=== PATIENT | female | born 1995 | race Caucasian/White ===

== ENCOUNTER 2017-01-15 16:18 | Emergency (ER) | payer OTHER ==
[~2017-01-15] VITALS: Ht 170.2 cm; Wt 55.3 kg
[2017-01-15 17:10] VITALS: BP 116/79
--- NOTE | 2017-01-15 18:38 | NUR ---
Patient to OF.
[2017-01-15] MEDS ORDERED: MORPHINE SULFATE 4 MG/ML SYR IVP ONE ×2 (18:45→19:05)
--- NOTE | 2017-01-15 18:48 | NUR ---
Patient to bed 08.
--- NOTE | 2017-01-15 18:50 | NUR ---
21F PRESENTS TO ER C/O DOG BITE TO LEFT LEG; LACERATION/PUNCTURE WOUND NOTED TO SITE W/ BLEEDING; PT C/O SHARP PAIN TO LEFT LEG, NON-RADIATING, 10/10 X 1530 TODAY; PT A&OX4, PERRLA, BL LUNG SOUNDS CLEAR, RR EVEN/UNLABORED, PT DENIES N/V/D AT THIS TIME; PT RESTING IN BED W/ HOB ELEVATED AND IN LOWEST POSITION; POSITIONED FOR COMFORT; ER MD MADE AWARE OF STATUS. WILL CONTINUE TO MONITOR.
--- NOTE | 2017-01-15 18:59 | NUR ---
ANIMAL REPORT FOR DOG BITE REPORTED TO ANIMAL CONTROL VIA FAX AT THIS TIME; CONFIRMATION RECIEVED.
--- NOTE | 2017-01-15 19:11 | NUR ---
XRAY AT BEDSIDE.
--- NOTE | 2017-01-15 19:19 | NUR ---
Vignesh alvarado in [facility] - 01/15/17 at 1930 by ROBERTO REPORT GIVEN TO LENNY BRAND.
--- NOTE | 2017-01-15 19:19 | NUR ---
REPORT GIVEN TO LENNY BRAND. TRANSFER OF CARE AT THIS TIME.
--- NOTE | 2017-01-15 19:30 | NUR ---
PATIENT BEING EVALUATED BY DR. THOMPSON.
[2017-01-15] MEDS ORDERED: LIDOCAINE 1% 500 MG/50 ML VIAL INJ ONE (19:40)
[2017-01-15] MEDS ORDERED: KETOROLAC 30 MG/ML VIAL IVP ONE (21:00)
--- NOTE | 2017-01-15 21:15 | NUR ---
Patient discharged with v/s stable. Written and verbal after care instructions given and explained. Patient alert, oriented and verbalized understanding of instructions. Ambulatory with steady gait. All questions addressed prior to discharge. ID band removed. Patient advised to follow up with PMD. Rx of TYLENOL WITH CODIENE # 3 PO, MOTRIN 800MG PO, AUGMENTIN 875MG PO given. Patient educated on indication of medication including possible reaction and side effects. Opportunity to ask questions provided and answered.
[2017-01-15 21:16] VITALS: BP 114/71
== END 2017-01-15 21:15 | disposition home or self-care (01) ==
LOC: MED 16:18
DX: S81.812A Laceration without foreign body, left lower leg, initial encounter (principal); S81.032A Puncture wound without foreign body, left knee, initial encounter; W54.0XXA Bitten by dog, initial encounter; Y93.89 Activity, other specified; Y92.098 Other place in other non-institutional residence as the place of occurrence of the external cause; Y99.8 Other external cause status
CPT/HCPCS: 12002; 73562; 73590; 90471; 90715; 96374; 96375; 99284; J1885; J2001; J2270; Q0092

== ENCOUNTER 2019-02-06 18:15 | Emergency (ER) | payer SELFPAY ==
[~2019-02-06] VITALS: Ht 170.2 cm; Wt 56.7 kg
[2019-02-06 18:35] VITALS: BP 116/62
--- NOTE | 2019-02-06 18:37 | NUR ---
TO LOBBY A/W BED AND XRAY , AMBULATORY
--- NOTE | 2019-02-06 18:45 | NUR ---
TO BED # 06 AMBULATORY
--- NOTE | 2019-02-06 18:55 | NUR ---
PT GONE TO XRAY
--- NOTE | 2019-02-06 19:25 | NUR ---
PT BIB BOYFRIEND C/O RIGHT SHOULDER PAIN. 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 RIGHT SHOULDER DROP, NO REDNESS OR SWELLING; STATES 8/10 CONSTANT PAIN. PAIN W/ AROM, RADIAL PULSES STRONG AND EQUAL BL, AROM OF PHALANGES. DENIES N/V. PT ACTING APPROPRIATLY, BREATHING EQUAL AND UNLABORED. SPEAKING IN CLEAR AND COMPLETE SENTENCES; PT PLACED IN GOWN, ATTACHED TO BEDSIDE MONITOR. WILL CONTINUE TO MONITOR. -ZHENG HEATON AT BEDSIDE. PMH: DENIES
--- NOTE | 2019-02-06 19:29 | NUR ---
REPORT GIVEN TO DOMO GALVEZ
[2019-02-06] MEDS ORDERED: MIDAZOLAM 2 MG/2 ML VIAL IM ONE (19:40)
--- NOTE | 2019-02-06 20:20 | NUR ---
PA WITH PT
--- NOTE | 2019-02-06 21:37 | NUR ---
PLACED SLING ON PATIENT
[2019-02-06 22:02] VITALS: BP 114/74
--- NOTE | 2019-02-06 22:02 | NUR ---
Patient discharged with v/s stable. Written and verbal after care instructions given and explained. Patient alert, oriented and verbalized understanding of instructions. Ambulatory with steady gait. All questions addressed prior to discharge. ID band removed. Patient advised to follow up with PMD. Rx of Tylenol and Ibuprofen given. Patient educated on indication of medication including possible reaction and side effects. Opportunity to ask questions provided and answered.
== END 2019-02-06 22:02 | disposition home or self-care (01) ==
LOC: MED 18:15
DX: S43.401A Unspecified sprain of right shoulder joint, initial encounter (principal); X50.1XXA Overexertion from prolonged static or awkward postures, initial encounter; Y93.89 Activity, other specified; Y92.89 Other specified places as the place of occurrence of the external cause; Y99.8 Other external cause status
CPT/HCPCS: 73030; 96372; 99283; J2250